=== PATIENT | male | born 1950 | race Caucasian/White ===

== ENCOUNTER 2021-07-04 21:17 | Observation (INO) | payer OTHER ==
[~2021-07-04] VITALS: Ht 172.7 cm; Wt 85.4 kg
[2021-07-04] MEDS ORDERED: LIPITOR80 MG PO (21:44)
[2021-07-04] MEDS ORDERED: TRAZ100 PO (21:45)
[2021-07-04] MEDS ORDERED: ASPI81CH PO (21:46)
[2021-07-04] MEDS ORDERED: LOSARTAN-HCTZ1 EACH PO (21:46)
[2021-07-04 22:23] LABS: BASOPHILS ABSOLUTE AUTO 0.03 K/mm3 (0.00-0.23); BASOPHILS PERCENT AUTO 0 % (0-2); EOSINOPHILS ABSOLUTE AUTO 0.14 K/mm3 (0.00-0.68); EOSINOPHILS PERCENT AUTO 2 % (0-6); Hematocrit 48.4 % (37.0-53.0); Hemoglobin 16.5 g/dL (13.5-17.5); IMMATURE GRAN ABSOLUTE AUTO 0.05 K/mm3 (0.00-0.10); IMMATURE GRAN PERCENT AUTO 1 % (0-1); LYMPHOCYTES ABSOLUTE AUTO 1.73 K/mm3 (0.84-5.20); LYMPHOCYTES PERCENT AUTO 21 % (21-46); MONOCYTES ABSOLUTE AUTO 0.64 K/mm3 (0.16-1.47); MONOCYTES PERCENT AUTO 8 % (4-13); Mean Corpuscular HGB 30.1 pg (26.0-34.0); Mean Corpuscular HGB Conc 34.1 g/dL (31.5-36.5); Mean Corpuscular Volume 88 fL (80-100); Mean Platelet Volume 9.4 fL (9.1-12.4); NEUTROPHILS ABSOLUTE AUTO 5.74 K/mm3 (1.96-9.15); NEUTROPHILS PERCENT AUTO 69 % (41-73); Platelet Count 277 K/mm3 (150-400); RDW Coefficient Variation 12.5 % (11.7-14.2); RDW Standard Deviation 40.6 fL (35.1-46.3); Red Blood Cell Count 5.48 M/mm3 (4.30-5.90); White Blood Cell Count 8.33 K/mm3 (4.00-11.30)
[2021-07-04 22:40] LABS: Troponin I <0.015 ng/mL (0.000-0.040)
[2021-07-04 22:56] LABS: Alanine Aminotransfer (ALT/SGP 56 U/L (12-78); Albumin, Blood 3.7 g/dL (3.4-5.0); Alk Phos 146 U/L (50-136); Anion Gap 5 mmol/L (6-16); Aspartate Aminotrans (AST/SGOT 30 U/L (12-37); Bilirubin, Total 0.3 mg/dL (0.1-1.0); Blood Urea Nitrogen 16 mg/dL (8-24); Bun/Creatinine Ratio 15.2 (12.0-20.0); CO2, Blood 30 mmol/L (21-32); Chloride, Blood 103 mmol/L (98-108); Creatinine, Blood 1.05 mg/dL (0.60-1.20); Globulin, Blood 3.8 g/dL (2.2-4.0); Glomerular Filtration Rate >60 (60-); Glucose, Blood 127 mg/dL (70-99); Potassium, Blood 3.8 mmol/L (3.5-5.5); Sodium, Blood 138 mmol/L (136-145); Total Protein, Blood 7.5 g/dL (6.4-8.2)
[2021-07-05 02:41] LABS: Influenza A, PCR NEGATIVE (NEGATIVE); Influenza B, PCR NEGATIVE (NEGATIVE); Resp Syncytial Virus, PCR NEGATIVE (NEGATIVE)
[2021-07-05 03:32] LABS: SARS-Cov-2 (COVID-19) PCR, MMC POSITIVE (NEGATIVE)
--- NOTE | 2021-07-05 05:27 | NUR ---
ADMITTED THIS PT. IN ROOM AT 0410 ACCOMPANIED BY TOY STUFFER. AIRBORN PRECAUTIONS IMPLEMENTED RELATED TO COVID (+). PER PT., HE WAS TESTED (+) WITH COVID ON 06/24/21. O2 SAT OF 97% ON RA. G 20 TO LEFT AC FOR IV ACCESS.AOX4, SIGNED ADMISSION PAPERWORK, ANSWERED ADMISSION INFORMATION NEEDED.PER ER REPORT, SBP UPON ADMISSION WAS OVER 200'S. HYDRALAZINE WAS GIVEN.AFTER EDUCATION ON BLOOD CLOTS & POSSIBILITIES, PT. REFUSED SCD's & SAID " I WANT TO SLEEP". NS INFUSING TO 75 ML/HR.
[2021-07-05 06:27] LABS: BASOPHILS ABSOLUTE AUTO 0.01 K/mm3 (0.00-0.23); BASOPHILS PERCENT AUTO 0 % (0-2); EOSINOPHILS PERCENT AUTO 0 % (0-6); Hematocrit 48.2 % (37.0-53.0); Hemoglobin 16.7 g/dL (13.5-17.5); IMMATURE GRAN ABSOLUTE AUTO 0.05 K/mm3 (0.00-0.10); IMMATURE GRAN PERCENT AUTO 0 % (0-1); LYMPHOCYTES ABSOLUTE AUTO 0.67 K/mm3 (0.84-5.20); LYMPHOCYTES PERCENT AUTO 6 % (21-46); MONOCYTES ABSOLUTE AUTO 0.77 K/mm3 (0.16-1.47); MONOCYTES PERCENT AUTO 7 % (4-13); Mean Corpuscular HGB 30.2 pg (26.0-34.0); Mean Corpuscular HGB Conc 34.6 g/dL (31.5-36.5); Mean Corpuscular Volume 87 fL (80-100); Mean Platelet Volume 9.3 fL (9.1-12.4); NEUTROPHILS ABSOLUTE AUTO 10.37 K/mm3 (1.96-9.15); NEUTROPHILS PERCENT AUTO 87 % (41-73); Platelet Count 254 K/mm3 (150-400); RDW Coefficient Variation 12.7 % (11.7-14.2); RDW Standard Deviation 40.7 fL (35.1-46.3); Red Blood Cell Count 5.53 M/mm3 (4.30-5.90); White Blood Cell Count 11.87 K/mm3 (4.00-11.30)
[2021-07-05 06:48] LABS: Alanine Aminotransfer (ALT/SGP 55 U/L (12-78); Albumin, Blood 3.6 g/dL (3.4-5.0); Alk Phos 134 U/L (50-136); Anion Gap 7 mmol/L (6-16); Aspartate Aminotrans (AST/SGOT 24 U/L (12-37); Bilirubin, Total 0.4 mg/dL (0.1-1.0); Blood Urea Nitrogen 16 mg/dL (8-24); Bun/Creatinine Ratio 19.7 (12.0-20.0); CO2, Blood 26 mmol/L (21-32); CPK Creatine Kinase 90 U/L (39-308); Chloride, Blood 106 mmol/L (98-108); Creatinine, Blood 0.81 mg/dL (0.60-1.20); Globulin, Blood 3.5 g/dL (2.2-4.0); Glomerular Filtration Rate >60 (60-); Glucose, Blood 155 mg/dL (70-99); Potassium, Blood 3.9 mmol/L (3.5-5.5); Sodium, Blood 139 mmol/L (136-145); Total Protein, Blood 7.1 g/dL (6.4-8.2); Troponin I <0.015 ng/mL (0.000-0.040)
[2021-07-05 14:27] LABS: Troponin I 0.027 ng/mL (0.000-0.040)
--- NOTE | 2021-07-05 15:36 | NUR ---
SHIFT SUMMARY: CHOLECYSTITIS PATIENT IS ALERT AND ORIENTED X4. PATIENT WAS HAVING HIGH PULSE AND BP EARLIER BUT SINCE RECIEVING IV LEBATOLOL PATIENTS PULSE HAS BEEN LOWERED AND SO HAS HIS BP. TEMPATURE HAS BEEN LOWERED FROM IV TORADOL WELL. PATIENT REPORTS FEELING "UNCOMFORTABLE AND TENDER" WITH HIS ABD BUT DENIES WANTING PAIN MEDICATION. HE IS TOLERATING SMALL AMOUNTS OF PO INTAKE. IV ABX WAS GIVEN. PATIENT IS CURRENTLY SITTING IN BED WATCHING TV. CALL LIGHT WITHIN REACH. THE PLAN IS FOR THE PATIENT TO HAVE A HIDA SCAN IN THE MORNING AND FOR POSSIBLE SURGERY LATER IN THE DAY. PATIENT IS TO BE NPO AT MIDNIGHT AND TO HAVE NO NARCOTICS FROM MIDNIGHT ON FOR THE HIDA SCAN.
--- NOTE | 2021-07-05 22:34 | NUR ---
SOME ANXIETY AND TREMORS NOTED DURING ASSESSMENT, PATIENT STATED THAT HE "GOES TO THE BAR 3 TIMES A WEEK AND DRINKS A PITCHER OF BEER." CALL PLACED TO THE HOSPITALIST ABOUT PT SHOWING SIGNS OF POSSIBLE WITHDRAWL, AT THAT TIME ORDER GIVEN FOR 1MG IV ATIVAN Q1H PRN FOR ALCOHOL WITHDRAWL, WILL CONTINUE TO MONITOR.
[2021-07-06 04:57] LABS: BASOPHILS ABSOLUTE AUTO 0.02 K/mm3 (0.00-0.23); BASOPHILS PERCENT AUTO 0 % (0-2); EOSINOPHILS ABSOLUTE AUTO 0.01 K/mm3 (0.00-0.68); EOSINOPHILS PERCENT AUTO 0 % (0-6); Hematocrit 46.1 % (37.0-53.0); Hemoglobin 15.4 g/dL (13.5-17.5); IMMATURE GRAN PERCENT AUTO 1 % (0-1); LYMPHOCYTES ABSOLUTE AUTO 1.13 K/mm3 (0.84-5.20); LYMPHOCYTES PERCENT AUTO 8 % (21-46); MONOCYTES PERCENT AUTO 8 % (4-13); Mean Corpuscular HGB 29.7 pg (26.0-34.0); Mean Corpuscular HGB Conc 33.4 g/dL (31.5-36.5); Mean Corpuscular Volume 89 fL (80-100); Mean Platelet Volume 9.7 fL (9.1-12.4); NEUTROPHILS ABSOLUTE AUTO 12.35 K/mm3 (1.96-9.15); NEUTROPHILS PERCENT AUTO 83 % (41-73); Platelet Count 223 K/mm3 (150-400); RDW Coefficient Variation 13.1 % (11.7-14.2); Red Blood Cell Count 5.18 M/mm3 (4.30-5.90); White Blood Cell Count 14.81 K/mm3 (4.00-11.30)
[2021-07-06 05:13] LABS: International Normalized Ratio 1.23; Prothrombin Time Results 12.7 Sec (9.7-11.5)
--- NOTE | 2021-07-06 05:16 | NUR ---
SHIFT SUMMARY A/O X4. IND IN RM. PAIN MANAGED PER EMAR. ABDOMEN DISTENDED. 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 VSS. HYPERACTIVE BOWEL TONES, PASSING FLATUS AND PT STATES BM 07/04/21. WILL CONTINUE TO MONITOR AND REPORT TO ONCOMING RN.
[2021-07-06 06:11] LABS: Alanine Aminotransfer (ALT/SGP 55 U/L (12-78); Albumin, Blood 3.1 g/dL (3.4-5.0); Albumin/Globulin Ratio 1.1 (0.8-1.8); Alk Phos 108 U/L (50-136); Anion Gap 9 mmol/L (6-16); Aspartate Aminotrans (AST/SGOT 26 U/L (12-37); Bilirubin, Total 1.2 mg/dL (0.1-1.0); Blood Urea Nitrogen 24 mg/dL (8-24); Bun/Creatinine Ratio 23.1 (12.0-20.0); CO2, Blood 27 mmol/L (21-32); Calcium, Blood 8.7 mg/dL (8.5-10.1); Chloride, Blood 104 mmol/L (98-108); Creatinine, Blood 1.04 mg/dL (0.60-1.20); Globulin, Blood 2.9 g/dL (2.2-4.0); Glomerular Filtration Rate >60 (60-); Glucose, Blood 112 mg/dL (70-99); Potassium, Blood 4.2 mmol/L (3.5-5.5); Sodium, Blood 140 mmol/L (136-145)
--- NOTE | 2021-07-06 06:26 | NUR ---
SHIFT SUMMARY A/O X4. IND IN RM. MODERATE ABDOMINAL DISTENTION, NON TENDER. REPORTS OF MANAGEABLE PAIN THIS SHIFT, REQUESTING NO PAIN MEDS AT THIS TIME. VSS. OXYGEN SATURATION 96%+ ON RA. NPO SINCE MIDNIGHT. WILL CONTINUE TO MONITOR AND REPORT TO ONCOMING RN.
--- NOTE | 2021-07-06 07:58 | NUR ---
PT TO IMAGING FOR HIDA SCAN.
--- NOTE | 2021-07-06 08:00 | NUR ---
ISOLATION RECEIVED CALL FROM [facility], PER THEIR REPORT, PT REMOVED FROM [facility]. PT UPDATED ON SITUATION.
--- NOTE | 2021-07-06 14:38 | NUR ---
AMA PT ASKED TO SPEAK TO SURGEON REGARDING THE PLAN OF SURGERY, CALL PLACED TO SURGEON WHO WAS UNREACHABLE AT THAT MOMENT. PT DAUGHTER ATTEMPTED TO DEESCALATE SITUATION AND GET PT TO STAY. PT REFUSED TO SIGN AMA FORM WHICH WAS WITNESSED BY ANOTHER RN. PT LEFT AMA AT APPROXIMATELY 1430, SURGEON CAME IN AT 1435 AND WAS UPDATED ON THE SITUATION.
== END 2021-07-06 14:30 | disposition left against medical advice (07) ==
LOC: ER 21:17 → SURS 21:18
PROVIDERS: Emergency Medicine; Physician Assistant; Surgery; ADMIT Internal Medicine
DX: K80.00 Calculus of gallbladder with acute cholecystitis without obstruction (principal); U07.1 COVID-19; A41.9 Sepsis, unspecified organism; I16.1 Hypertensive emergency; E78.5 Hyperlipidemia, unspecified; I10 Essential (primary) hypertension; Z79.82 Long term (current) use of aspirin; Z79.899 Other long term (current) drug therapy
CPT/HCPCS: 0241U; 36415; 71045; 71260; 76705; 78226; 80053; 82550; 83690; 83880; 84484; 85025; 85610; 93005; 93010; 96366; 96375; 96376; A9270; A9537; C9113; G0378; J0360; J1885; J2270; J2405; J2543; J3010; J7030; Q9967